=== PATIENT | female | born 1965 | race Caucasian/White ===

== ENCOUNTER → 2016-12-15 | Outpatient (CLI) | payer BC | LOC: RAD 12:42 | PROVIDERS: ATTEND Physician Assistant | DX: J32.9 Chronic sinusitis, unspecified (principal) | CPT/HCPCS: 70220 ==

== ENCOUNTER 2017-06-17 02:47 | Emergency (ER) | payer SELFPAY ==
[2017-06-17] MEDS ORDERED: CIPROFLOXACIN HCL/DEXAMETH OTIC DROP 7.5 ML AU ONE (04:16)
[2017-06-17] MEDS ORDERED: AMOXICILLIN TRIHYDRATE 500 MG CAPSULE PO ONE (04:16)
[2017-06-17] MEDS ORDERED: LIDOCAINE 2% JELLY 5 ML TUBE TOP ONE (04:16)
--- NOTE | 2017-06-17 04:21 | ER Document Report ---
ED General - General Chief Complaint: Ear Pain Stated Complaint: EAR PAIN Time Seen by Provider: 06/17/17 03:39 Notes: Patient is a 52-year-old female who presents with bilateral ear pain for the past 36 hours. Does describe as a severe, constant, aching pain. She tried [id number] swimmer's eardrops without any relief of her pain. Nothing worsens the pain. She denies any fever or constitutional symptoms. She has not seen her primary care doctor regarding today's concerns. Denies any headache, neck pain or altered mental status. TRAVEL OUTSIDE OF THE [place] IN LAST 30 DAYS: No - Related Data Allergies/Adverse Reactions: No Known Allergies Allergy (Verified 11/02/15 07:54) Past Medical History - General Information source: Patient - Social History Smoking Status: Never Smoker Chew tobacco use (# tins/day): No Frequency of alcohol use: None Drug Abuse: None Lives with: Alone Family History: Reviewed & Not Pertinent Patient has suicidal ideation: No Patient has homicidal ideation: No - Past Medical History Cardiac Medical History: Denies: Hx Coronary Artery Disease, Hx Heart Attack, Hx Hypertension Pulmonary Medical History: Reports: Hx Bronchitis Denies: Hx Asthma, Hx COPD, Hx Pneumonia Neurological Medical History: Denies: Hx Cerebrovascular Accident, Hx Seizures Renal/ Medical History: Denies: Hx Peritoneal Dialysis Musculoskeltal Medical History: Denies Hx Arthritis Past Surgical History: Reports: Hx Section, Hx Cholecystectomy, Hx Hysterectomy - Immunizations Hx Diphtheria, Pertussis, Tetanus Vaccination: Yes Hx Pneumococcal Vaccination: 10/27/13 Review of Systems - Review of Systems Notes: Constitutional: Negative for fever. HENT: Negative for sore throat. Positive for bilateral ear pain Eyes: Negative for visual changes. Cardiovascular: Negative for chest pain. Respiratory: Negative for shortness of breath. Gastrointestinal: Negative for abdominal pain, vomiting or diarrhea. Genitourinary: Negative for dysuria. Musculoskeletal: Negative for back pain. Skin: Negative for rash. Neurological: Negative for headaches, weakness or numbness. 10 point ROS negative except as marked above and in HPI. Physical Exam - Vital signs Vitals: Temp Pulse Resp BP Pulse Ox 98.9 F 86 18 133/83 H 97 06/17/17 03:01 06/17/17 03:01 06/17/17 03:01 06/17/17 03:01 06/17/17 03:01 Interpretation: Normal Notes: PHYSICAL EXAMINATION: GENERAL: Well-appearing, well-nourished and in no acute distress. HEAD: Atraumatic, normocephalic. EYES: sclera anicteric, conjunctiva are normal. ENT: Moist mucous membranes. Bilateral erythema and purulent drainage in the external ear canals. There is a slight purulent effusion behind the bilateral TMs without bulging NECK: Normal range of motion LUNGS: Normal work of breathing HEART: 2+ radial pulses bilaterally EXTREMITIES: no pitting or edema. No cyanosis. NEUROLOGICAL: No focal neurological deficits. Moves all extremities spontaneously and on command. PSYCH: Normal mood, normal affect. SKIN: Warm, Dry, normal turgor, no rashes or lesions noted. Course - Re-evaluation Re-evalutation: 06/17/17 04:17 Patient presents with findings consistent with bilateral otitis externa. Erythema and purulent drainage in the bilateral ear canals with slight effusions behind the TMs bilaterally. Patient is otherwise well in appearance, nontoxic, vitals within normal limits. No evidence of mastoiditis on exam. She was started on Ciprodex drops as well as amoxicillin. At this time will discharge with return precautions and follow-up recommendations. Verbal discharge instructions given a the bedside and opportunity for questions given. Medication warnings reviewed. Patient is in agreement with this plan and has verbalized understanding of return precautions and the need for primary care follow-up in the next 24-72 hours. - Vital Signs Vital signs: Temp Pulse Resp BP Pulse Ox 98.9 F 86 18 133/83 H 97 06/17/17 03:01 06/17/17 03:01 06/17/17 03:01 06/17/17 03:01 06/17/17 03:01 Discharge - Discharge Clinical Impression: Otitis externa Qualifiers: Otitis externa type: swimmer's ear Chronicity: acute Laterality: bilateral Qualified Code(s): H60.333 - Swimmer's ear, bilateral Condition: Good Disposition: HOME, SELF-CARE Instructions: Otitis Externa ([facility]) Additional Instructions: Please insert 1 drop of the Ciprodex solution into each ear 3 times daily for the next 7 days. You may use the viscous lidocaine as needed for pain. Take the amoxicillin until completed. Return if you develop any worsening of your pain, loss of hearing, fever, confusion, or any other symptoms that are worrisome to you. Prescriptions: Amoxicillin 1 tab PO TID #30 tab
[2017-06-17 05:56] VITALS: BP 135/77
== END 2017-06-17 05:18 | disposition home or self-care (01) ==
LOC: ER 02:47
DX: H60.333 Swimmer's ear, bilateral (principal); H92.03 Otalgia, bilateral
CPT/HCPCS: 99282; J3490